=== PATIENT | male | born 1960 ===

== ENCOUNTER 2017-04-28 16:02 | Emergency (ER) | payer MEDICARE, MEDICAID ==
[2017-04-28 16:03] VITALS: BMI 30.3
[2017-04-28 16:12] VITALS: BP 153/116; PULSE 87; RESP 20; TEMP 98.1; O2SAT 97
--- NOTE | 2017-04-28 16:49 | ED PDOC ---
HPI: Back Time Seen by Provider: 04/28/17 16:19 Chief Complaint (Nursing): Back Pain Chief Complaint (Provider): Back pain History Per: Patient History/Exam Limitations: no limitations Additional Complaint(s): Aries Sharma is a 56 year old male with a history of lumbar history who presents to the ED for a chief complaint of back injury. Patient reports was walking and his leg gave out on him. He fell on the side walk and hit his left paravertebral area with direct impact on the side. Associated symptoms include hematoma with tenderness, but denies any numbness or tingling to the lower extremities, abdominal pain, hematuria, nausea, or vomiting. PMD: Dr. Aquilino Gramajo. Past Medical History Reviewed: Historical Data, Nursing Documentation, Vital Signs Vital Signs: Last Vital Signs Temp 98.1 F 04/28/17 16:08 Pulse 87 04/28/17 16:08 Resp 20 04/28/17 16:08 BP 153/116 H 04/28/17 16:08 Pulse Ox 97 04/28/17 16:08 - Medical History PMH: HTN (diagnosed 1 month ago/under treatment), Pneumothorax (Hx of spontaneous pneumotorax years ago) Denies: HIV, Chronic Kidney Disease - Surgical History Surgical History: Back Surgery (Lumbar herniated disc surgery), Tonsillectomy - Family History Family History: States: CAD (father in his 50's) - Home Medications Home Medications: Ambulatory Orders Medication Instructions Recorded Aspirin [Ecotrin] 81 mg PO HS 04/20/16 Metoprolol Tartrate [Lopressor] 50 mg PO BID #30 04/21/16 Atorvastatin [Lipitor] 40 mg PO HS #30 tab 04/28/16 Ticagrelor [Brilinta] 90 mg PO BID #0 tab 04/28/16 Ibuprofen [Motrin] 400 mg PO Q6 #30 tab 04/28/17 - Allergies Allergies/Adverse Reactions: Allergies Allergy/AdvReac Type Severity Reaction Status Date / Time Sulfa (Sulfonamide Allergy RASH Verified 04/28/17 16:07 Antibiotics) Review of Systems ROS Statement: Except As Marked, All Systems Reviewed And Found Negative Constitutional: Positive for: Other (Hematoma with tenderness.) Gastrointestinal: Negative for: Nausea, Vomiting, Abdominal Pain Genitourinary Male: Negative for: Hematuria Musculoskeletal: Positive for: Back Pain Physical Exam - Reviewed Nursing Documentation Reviewed: Yes Vital Signs Reviewed: Yes - Physical Exam Appears: Positive for: Well, Non-toxic, No Acute Distress Head Exam: Positive for: ATRAUMATIC, NORMAL INSPECTION, NORMOCEPHALIC Skin: Positive for: Normal Color Eye Exam: Positive for: Normal appearance ENT: Positive for: Normal ENT Inspection Neck: Positive for: Normal Cardiovascular/Chest: Positive for: Regular Rate, Rhythm Respiratory: Positive for: Normal Breath Sounds Gastrointestinal/Abdominal: Positive for: Normal Exam Back: Negative for: Normal Inspection, Other (No midline tenderness. Tenderness noted only in the area of the hematoma.) Extremity: Positive for: Other (No numbness or tingling to the lower extremities. In ability to raise lower extremities. Negative straight leg.). Negative for: Normal ROM Lymphatic: Positive for: Deferred Neurologic/Psych: Positive for: Alert, Oriented, Other (Neurovascularly intact.) - ECG O2 Sat by Pulse Oximetry: 97 (RA) Pulse Ox Interpretation: Normal Medical Decision Making Medical Decision Makin: Initial Impression: Back injury Initial Plan: * CT of the lumbar spine-NAD * Ice pack applied to the area of injury. * Re-Evaluation Pt with hematoma advised to apply ice at area and monitor for worsening swelling , fever and chills. Scribe Attestation: Documented by Brayan Garcia acting as a scribe for Sinai Irving PA-C. Provider Scribe Attestation: All medical record entries made by the Scribe were at my direction and personally dictated by me. I have reviewed the chart and agree that the record accurately reflects my personal performance of the history, physical exam, medical decision making, and the department course for this patient. I have also personally directed, reviewed, and agree with the discharge instructions and disposition. Time Disposition - Clinical Impression Clinical Impression: Back pain, Hematoma - Patient ED Disposition Is Patient to be Admitted: No Counseled Patient/Family Regarding: Studies Performed, Diagnosis, Need For Followup - Disposition Disposition: Routine/Home Disposition Time: 17:49 Condition: STABLE Prescriptions: Ibuprofen [Motrin] 400 mg PO Q6 #30 tab Instructions: Contusion in Adults (ED), Hematoma (ED) Forms: [employer] (Slovak) Print Language: DJIBOUTIAN
--- NOTE | 2017-04-28 17:47 | CT ---
PROCEDURE: CT scan lumbar spine 04/28/2017 HISTORY: Acute injury to lumbar spine after fall hx of surg COMPARISON: No prior TECHNIQUE: Contiguous helical/ transaxial computed tomography images were obtained of the lumbar spine without the use of intravenous contrast. Coronal and sagittal reformatted images were created and reviewed. Radiation dose: Total exam DLP = 2134.36 mGy-cm. This CT exam was performed using one or more of the following dose reduction techniques: Automated exposure control, adjustment of the mA and/or kV according to patient size, and/or use of iterative reconstruction technique. . FINDINGS: VERTEBRAE: Current study reveals no evidence of acute compression fractures no retropulsed fragments. Vertebral bodies exhibit normal stature. Bilateral laminectomy at changes seen at the L4-L5 level with short-segment bilateral Kennedy rods attached to the right and left pedicles of the L5 and S1 segments. . . Laminectomy on changes appear to extend to the upper L5-S1 disc space level There is narrowing of the disc space at at the L5-S1 level however the overall central canal appears adequate so far as can be seen though note that the canal is quite obscured by a significant streak and beam hardening artifact arising from posterior fixation hardware. Posterior bony fusion mass present bilaterally with heterotopic bone surrounding facet joints. The exit foramina are adequate so far as can be seen. Hardware appears intact with no evidence of loosening or infection. At the L4-L5 level, there is minor posterior disc space narrowing. Small broad-based disc bulge ridge complex is present. Facets are mildly hypertrophic. There is mid mild flattening of the ventral surface of the thecal sac however the overall central canal appears adequate. Exit foramina are also adequate. Similar changes seen at the L2-L3 level. Impression: Postoperative bilateral laminectomy L4-L5 level and upper L5-S1 disc space level with posterior fixation L5-S1 levels as above. . The hardware appears intact without evidence of fracture or failure. Mild multilevel degenerative spondylosis.
== END 2017-04-28 18:04 | disposition home or self-care (01) ==
LOC: H.ER 16:02
DX: S30.0XXA Contusion of lower back and pelvis, initial encounter (principal); W19.XXXA Unspecified fall, initial encounter; Y92.89 Other specified places as the place of occurrence of the external cause; I10 Essential (primary) hypertension; Z79.82 Long term (current) use of aspirin